=== PATIENT | male | born 1965 | race Two or more races ===

== ENCOUNTER 2017-04-30 03:53 | Emergency (ER) | payer MEDICAID ==
[~2017-04-30] VITALS: Ht 160 cm; Wt 104.3 kg
[~2017-04-30 03:53] MED LIST: IBUPROFEN600 MG PO; NORCO 5-325 TA1 EACH PO
[2017-04-30] MEDS ORDERED: NKM (04:02)
[2017-04-30] MEDS ORDERED: IBUPROFEN600 MG ORAL (04:10)
--- NOTE | 2017-04-30 04:10 | Emergency Room Report ---
History of Present Illness General Chief Complaint: Lower Extremity Injury Source: Patient Present Illness HPI 52-year-old male presents with right ankle pain. Patient states that yesterday he twisted it, and his symptoms had a lot of pain. Pain is worse with movement but however he is able to ambulate. Has not taken any meds for it Allergies: Coded Allergies: No Known Allergies (Unverified , 04/30/17) Patient History Past Medical History: see triage record Past Surgical History: none Pertinent Family History: none Reviewed Nursing Documentation: PMH: Agreed, PSxH: Agreed Nursing Documentation-PMH Past Medical History: No Stated History Review of Systems All Other Systems: negative except mentioned in HPI Physical Exam Vital Signs Date Time Temp Pulse Resp B/P (MAP) Pulse Ox O2 Delivery O2 Flow Rate FiO2 04/30/17 03:56 98.1 88 16 163/93 93 Room Air Sp02 EP Interpretation: reviewed, normal General Appearance: normal inspection, well appearing, no apparent distress, alert, GCS 15, non-toxic Head: normocephalic, atraumatic Eyes: bilateral eye normal inspection, bilateral eye PERRL, bilateral eye EOMI ENT: normal ENT inspection, normal pharynx, normal voice, moist mucus membranes Neck: normal inspection, full range of motion, supple Respiratory: normal inspection, lungs clear, normal breath sounds, no respiratory distress, no retraction, no wheezing, speaking full sentences, chest symmetrical Cardiovascular #1: normal inspection, regular rate, rhythm, no edema, normal capillary refill Cardiovascular #2: 2+ radial (R), 2+ radial (L) Gastrointestinal: normal inspection, non tender, soft, non-distended, no guarding Musculoskeletal: other - Right-sided ankle, lateral malleolus, tender to palpation with to light edema and ecchymosis. Full range of motion. No fifth metatarsal tenderness. No other abnormalities Neurologic: normal inspection, alert, oriented x3, responsive, motor strength/ tone normal, sensory intact, normal gait, speech normal Psychiatric: normal inspection, judgement/insight normal, memory normal Skin: normal inspection, normal color, no rash, warm/dry, well hydrated, normal turgor Procedures Splinting Splinting : Consent: Verbal Location: R ankle Pre-Made Type: MYRNA wrap Pre-Proc Neuro Vasc Exam: normal Post-Proc Neuro Vasc Exam: normal Patient Tolerated: Well Complications: None Medical Decision Making Diagnostic Impression: Primary Impression: Ankle pain, right ER Course 52-year-old male with right ankle pain DDX: sprain/strain vs. fracture Plan: Pain control with motrin XR ER course: Patient reports improvement of pain with motrin. XR reveals soft tissue swelling without fracture MYRNA bandage applied. Disposition: Patient is to be discharged home with a prescription of motrin. Patient educated to rest, ice, and elevate extremity and to avoid vigorous activity. Strict precautions discussed with patient on when to return to the emergency room including increased redness or swelling joints, increased pain/swelling of extremity, fever or chills, which could indicate severe illness. Patient is to follow up with their primary care doctor within 5 days. Patient also instructed to follow up with an orthopedic doctor if continuing to have mild/moderate pain as he may need further outpatient imaging. Patient agrees with plan. Please note that this Emergency Department Report was dictated using [email or web address] operator technology software, occasionally this can lead to erroneous entry secondary to interpretation by the dictation equipment. Xray ordered: Right ankle 3 view Indication: Pain EP Interpretation: Yes Interpretation: No dislocation, +soft tissue swelling, no fractures Impression: No acute disease Electronically signed by Elbert Ibrahim MD Last Vital Signs Date Time Temp Pulse Resp B/P (MAP) Pulse Ox O2 Delivery O2 Flow Rate FiO2 04/30/17 03:56 98.1 88 16 163/93 93 Room Air Disposition: HOME, SELF-CARE Condition: Improved Scripts Ibuprofen* (MOTRIN*) 600 Mg Tablet 600 MG ORAL Q6H Y for For Pain, #30 TAB 0 Refills Prov: Elbert Ibrahim M.D. 04/30/17 Patient Instructions: Ankle Sprain Elbert Ibrahim M.D. Apr 30, 2017 04:10
[2017-04-30 04:50] VITALS: BP 163/93
--- NOTE | 2017-04-30 11:10 | Diagnostic Imaging Report ---
Indication: Trauma with pain Technique: ANKLE COMPLETE MIN 3V RT Comparison: None. Findings: The osseous structures are intact. There is no fracture or destruction. The visualized joints are normal. The soft tissues are unremarkable. Impression: Normal right ankle.
== END 2017-04-30 04:50 | disposition home or self-care (01) ==
LOC: EMR 04:08
DX: M25.571 Pain in right ankle and joints of right foot (principal)
CPT/HCPCS: 99283